=== PATIENT | male | born 1975 | race Caucasian/White ===

== ENCOUNTER 2016-03-28 05:22 | Day surgery (SDC) | payer OTHER ==
[~2016-03-28] VITALS: Ht 188 cm; Wt 122.5 kg
[~2016-03-28 05:22] MED LIST: ADVIL,NUPRIN,M200 MG PO; ELOCON 0.1% CRE15 GM TP; ERGOCALCIF50000 UNIT PO; MECLIZINE HCL12.5 M1 PO; ONE-A-DAY ESSE1 EAC1 PO; VENTOLIN HFA18 GM IH; ZYRTEC10 M3 PO
[2016-03-28] MEDS ORDERED: FISH OIL 1,001000 M2 PO (05:56)
[2016-03-28 06:02] VITALS: BP 140/77
[2016-03-28] MEDS ORDERED: COLACE100 MG PO (08:43)
[2016-03-28] MEDS ORDERED: PERCOCET 5/31 TABLET PO (08:43)
[2016-03-28 09:39] VITALS: BP 151/86
[2016-03-28 10:40] VITALS: BP 174/89; BP 179/89
== END 2016-03-28 10:52 | disposition home or self-care (01) ==
LOC: SDC 05:22
DX: K42.9 Umbilical hernia without obstruction or gangrene (principal); G47.33 Obstructive sleep apnea (adult) (pediatric); H81.09 Meniere's disease, unspecified ear
CPT/HCPCS: C1781; J1170; J2710; J3010

== ENCOUNTER 2016-04-03 12:24 | Inpatient (IN) | payer OTHER ==
[~2016-04-03] VITALS: Ht 188 cm; Wt 119.5 kg
[~2016-04-03 12:24] MED LIST changes: +COLACE100 MG PO; +FISH OIL 1,001000 M2 PO; +PERCOCET 5/31 TABLET PO
[2016-04-03 13:39] LABS: EOSINOPHIL (%) 1.8 % (0-5); EOSINOPHIL COUNT 0.2 K/uL (0-0.3); HEMATOCRIT 44.6 % (38.0-50.0); IMMATURE GRANULOCYTE (%) 0.7 % (0.0-0.7); IMMATURE GRANULOCYTE COUNT 0.7 K/uL; LYMPHOCYTE COUNT 1.5 K/uL (1.0-2.8); MCH 29.9 PG (29.0-34.0); MCHC 35.7 G/DL (30.0-36.0); MCV 83.8 FL (86-99); MEAN PLAT.VOLUME 8.3 uM^3 (9.0-12.4); MONOCYTE COUNT 0.9 K/uL (0-0.8); NEUTROPHIL (%) 74.1 % (45-76); NEUTROPHIL COUNT 7.6 K/uL (1.8-6.4); PLATELET COUNT 175 K/uL (156-360); RBC DIS.WIDTH-CV 12.3 % (11.8-14.6); RBC DIS.WIDTH-SD 37.2 % (39-53); RED BLOOD COUNT 5.32 M/uL (4.00-5.50)
[2016-04-03 13:45] LABS: WHITE BLOOD COUNT 10.2 K/uL (4.1-10.2)
[2016-04-03 13:49] LABS: CHLORIDE 104 mEq/L (99-109); POTASSIUM 4.8 mEq/L (3.7-5.4); SODIUM 138 mEq/L (136-147)
[2016-04-03 13:51] LABS: GLUCOSE 106 mg/dL (70-99); INTER. NORMALIZED RATIO 1.1; PROTHROMBIN TIME 10.7 (9.2-11.2); PTT 28.5 (25-32)
[2016-04-03 13:52] LABS: ANION GAP 9 MEQ/L (2-14)
[2016-04-03 13:54] LABS: GFR ESTIMATE (CALCULATED) > 59 mL/min/
[2016-04-03 13:55] LABS: UREA NITROGEN (BUN) 10 mg/dL (9-23)
[2016-04-03 13:59] LABS: D-DIMER ELISA > 4.00 mg/L FEU (< 0.57)
[2016-04-03 14:00] LABS: TROP-I INTERPRETATION NEGATIVE; TROPONIN-I 0.09 ng/mL (0.0-0.30)
[2016-04-03 17:00] VITALS: BP 138/91
[2016-04-03 17:25] VITALS: BP 138/91
[2016-04-03 20:00] VITALS: BP 136/96
[2016-04-03 20:26] LABS: TROP-I INTERPRETATION NEGATIVE; TROPONIN-I 0.29 ng/mL (0.0-0.30)
[2016-04-03 23:55] VITALS: BP 138/88
[2016-04-04 03:03] LABS: TROP-I INTERPRETATION NEGATIVE; TROPONIN-I 0.13 ng/mL (0.0-0.30)
[2016-04-04 04:00] VITALS: BP 125/80
[2016-04-04 04:25] LABS: HEMATOCRIT 44.3 % (38.0-50.0); MCH 29.6 PG (29.0-34.0); MCHC 35.2 G/DL (30.0-36.0); MCV 84.1 FL (86-99); MEAN PLAT.VOLUME 8.8 uM^3 (9.0-12.4); PLATELET COUNT 190 K/uL (156-360); RBC DIS.WIDTH-CV 12.5 % (11.8-14.6); RBC DIS.WIDTH-SD 37.9 % (39-53); RED BLOOD COUNT 5.27 M/uL (4.00-5.50); WHITE BLOOD COUNT 9.2 K/uL (4.1-10.2)
[2016-04-04 04:28] LABS: CHLORIDE 106 mEq/L (99-109); POTASSIUM 4.4 mEq/L (3.7-5.4); SODIUM 140 mEq/L (136-147)
[2016-04-04 04:30] LABS: GLUCOSE 105 mg/dL (70-99)
[2016-04-04 04:31] LABS: ANION GAP 8 MEQ/L (2-14)
[2016-04-04 04:32] LABS: TOTAL BILIRUBIN 0.8 mg/dL (0.0-1.0)
[2016-04-04 04:33] LABS: ALKALINE PHOSPHATASE 77 IU/L (3-129); GFR ESTIMATE (CALCULATED) > 59 mL/min/
[2016-04-04 04:35] LABS: UREA NITROGEN (BUN) 10 mg/dL (9-23)
[2016-04-04 07:30] VITALS: BP 169/95
[2016-04-04 12:07] VITALS: BP 156/90
[2016-04-04 16:15] VITALS: BP 139/94
[2016-04-04 20:00] VITALS: BP 135/91
[2016-04-04 23:55] VITALS: BP 133/80
[2016-04-05 04:00] VITALS: BP 136/94
[2016-04-05 08:00] VITALS: BP 140/85
[2016-04-05 11:15] VITALS: BP 154/89
[2016-04-05 14:21] LABS: INTER. NORMALIZED RATIO 1.1; PROTHROMBIN TIME 10.7 (9.2-11.2)
[2016-04-05 16:36] VITALS: BP 137/85
[2016-04-05 20:00] VITALS: BP 133/90
[2016-04-05 23:50] VITALS: BP 141/90
[2016-04-06 04:00] VITALS: BP 133/73
[2016-04-06 06:44] LABS: INTER. NORMALIZED RATIO 1.1; PTT 54.1 (25-32)
[2016-04-06 07:30] VITALS: BP 142/86
[2016-04-06 11:15] VITALS: BP 142/91
[2016-04-06 16:46] VITALS: BP 164/92
[2016-04-06 19:45] VITALS: BP 140/85
[2016-04-06 23:57] VITALS: BP 138/80
[2016-04-07 03:18] VITALS: BP 130/76
[2016-04-07 06:59] LABS: HEMATOCRIT 45.2 % (38.0-50.0); MCH 30.4 PG (29.0-34.0); MCHC 35.4 G/DL (30.0-36.0); MCV 85.8 FL (86-99); MEAN PLAT.VOLUME 9.6 uM^3 (9.0-12.4); PLATELET COUNT 203 K/uL (156-360); RBC DIS.WIDTH-CV 12.4 % (11.8-14.6); RBC DIS.WIDTH-SD 38.3 % (39-53); RED BLOOD COUNT 5.27 M/uL (4.00-5.50); WHITE BLOOD COUNT 8.9 K/uL (4.1-10.2)
[2016-04-07 07:20] LABS: INTER. NORMALIZED RATIO 1.2; PROTHROMBIN TIME 12.1 (9.2-11.2)
[2016-04-07 08:00] VITALS: BP 135/82
[2016-04-07 09:23] LABS: FACTOR Xa INHIBITION (LMWH) 0.8 IU/mL
[2016-04-07 11:15] VITALS: BP 138/91
[2016-04-07 16:15] VITALS: BP 129/82
[2016-04-07 19:36] VITALS: BP 162/88
[2016-04-07 23:45] VITALS: BP 127/81
[2016-04-08 02:56] VITALS: BP 145/81
[2016-04-08 06:30] LABS: EOSINOPHIL (%) 4.4 % (0-5); EOSINOPHIL COUNT 0.4 K/uL (0-0.3); HEMATOCRIT 44.9 % (38.0-50.0); IMMATURE GRANULOCYTE (%) 1.1 % (0.0-0.7); IMMATURE GRANULOCYTE COUNT 0.1 K/uL; LYMPHOCYTE COUNT 2.1 K/uL (1.0-2.8); MCH 30.8 PG (29.0-34.0); MCHC 35.9 G/DL (30.0-36.0); MCV 85.9 FL (86-99); MEAN PLAT.VOLUME 9.4 uM^3 (9.0-12.4); MONOCYTE (%) 10.2 % (3-12); NEUTROPHIL (%) 62.1 % (45-76); NEUTROPHIL COUNT 5.9 K/uL (1.8-6.4); PLATELET COUNT 210 K/uL (156-360); RBC DIS.WIDTH-CV 12.3 % (11.8-14.6); RBC DIS.WIDTH-SD 38.5 % (39-53); RED BLOOD COUNT 5.23 M/uL (4.00-5.50); WHITE BLOOD COUNT 9.5 K/uL (4.1-10.2)
[2016-04-08 07:15] LABS: INTER. NORMALIZED RATIO 1.5; PROTHROMBIN TIME 15.2 (9.2-11.2)
[2016-04-08 07:17] LABS: ANION GAP 8 MEQ/L (2-14); CHLORIDE 102 MEQ/L (99-109); GFR ESTIMATE (CALCULATED) > 59 mL/min/; GLUCOSE 87 mg/dL (70-99); POTASSIUM 4.2 MEQ/L (3.7-5.4); SAMPLE HEMOLYSIS CHECK 0; SAMPLE ICTERIC CHECK 0; SAMPLE LIPEMIA CHECK 0; SODIUM 139 MEQ/L (136-147); UREA NITROGEN (BUN) 13 mg/dL (9-23)
[2016-04-08 07:52] VITALS: BP 113/62
[2016-04-08 10:08] LABS: FACTOR Xa INHIBITION (LMWH) 1.2 IU/mL
[2016-04-08] MEDS ORDERED: LOVENOX120 MG/0.8 SC (10:58)
[2016-04-08 11:34] VITALS: BP 119/63
[2016-04-08] MEDS ORDERED: WARFARIN SODIUM5 MG PO (13:38)
[2016-04-08 15:33] LABS: APCR to FVL REFLEX Has been added (()); DRVVT Mixing Study Interp Not Indicated (()); PROTEIN C FUNCTIONAL ACTIVITY+ 175 % (70-180); PTT-LA 37 sec (<=40); Protein S, Free 124 % normal (57-171); Thrombosis Consult Level Limited (()); dRVVT Screen 37 sec (<=45)
[2016-04-09 07:28] LABS: ANTITHROMBIN III ACTIVITY+ 103 % activi (80-120)
== END 2016-04-08 15:00 | disposition home or self-care (01) | DRG 176 ==
LOC: EME 12:24 → 4EAST 15:12 → EDOF 15:12 → 4EAST 16:50
PROVIDERS: Emergency Medicine; Hospitalist; Internal Medicine; Internal Medicine Hematology & Oncology; Internal Medicine Pulmonary Disease
PROC: 5A09357 Assistance with Respiratory Ventilation, Less than 24 Consecutive Hours, Continuous Positive Airway Pressure (ICD-10-PCS; principal; 2016-04-03)
DX: I26.92 Saddle embolus of pulmonary artery without acute cor pulmonale (principal); I82.441 Acute embolism and thrombosis of right tibial vein; J98.2 Interstitial emphysema; I27.2 Other secondary pulmonary hypertension; G47.33 Obstructive sleep apnea (adult) (pediatric); E66.9 Obesity, unspecified; Z68.34 Body mass index [BMI] 34.0-34.9, adult; Z87.891 Personal history of nicotine dependence
CPT/HCPCS: 71010; 71275; 80048; 80053; 81240 90; 83090 90; 83880; 84484; 85025; 85027; 85240 90; 85300 90; 85303 90; 85305 90; 85306 90; 85307 90; 85379; 85520; 85610; 85613 90; 85730; 85730 90; 86146 90; 86147 90; 93306; 93971; 94640; 94660; 94799; 99202; 99281; 99285; J1650; J7030; S0028

== ENCOUNTER 2016-04-15 06:41 | Emergency (ER) | payer OTHER ==
[~2016-04-15] VITALS: Ht 188 cm; Wt 119.5 kg
[~2016-04-15 06:41] MED LIST changes: +LOVENOX120 MG/0.8 SC; +WARFARIN SODIUM5 MG PO
[2016-04-15 07:36] LABS: HEMATOCRIT 46.6 % (38.0-50.0); MCH 29.1 PG (29.0-34.0); MCHC 35.2 G/DL (30.0-36.0); MCV 82.8 FL (86-99); RBC DIS.WIDTH-CV 12.5 % (11.8-14.6); RBC DIS.WIDTH-SD 37.4 % (39-53); RED BLOOD COUNT 5.63 M/uL (4.00-5.50); WHITE BLOOD COUNT 6.8 K/uL (4.1-10.2)
[2016-04-15 07:43] LABS: MEAN PLAT.VOLUME 8.6 uM^3 (9.0-12.4); PLATELET COUNT 293 K/uL (156-360)
[2016-04-15 07:53] LABS: INTER. NORMALIZED RATIO 6.2; PROTHROMBIN TIME 66.3 (9.2-11.2)
[2016-04-15 07:59] LABS: ANION GAP 10 MEQ/L (2-14); CHLORIDE 102 MEQ/L (99-109); POTASSIUM 4.3 MEQ/L (3.7-5.4); SAMPLE HEMOLYSIS CHECK 0; SAMPLE ICTERIC CHECK 0; SAMPLE LIPEMIA CHECK 0; SODIUM 139 MEQ/L (136-147); TOTAL BILIRUBIN 0.4 MG/DL (0.0-1.0)
[2016-04-15 08:05] LABS: ALKALINE PHOSPHATASE 73 IU/L (3-129); GFR ESTIMATE (CALCULATED) > 59 mL/min/; GLUCOSE 108 mg/dL (70-99); UREA NITROGEN (BUN) 12 mg/dL (9-23)
[2016-04-15 08:53] VITALS: BP 128/91
== END 2016-04-15 08:53 | disposition home or self-care (01) ==
LOC: EME 06:41
PROVIDERS: Emergency Medicine
DX: T45.511A Poisoning by anticoagulants, accidental (unintentional), initial encounter (principal); Z86.711 Personal history of pulmonary embolism; Z86.718 Personal history of other venous thrombosis and embolism; Z87.01 Personal history of pneumonia (recurrent); Z87.891 Personal history of nicotine dependence
CPT/HCPCS: 80053; 85027; 85610; 85730; 93005; 99281; 99284

== ENCOUNTER 2017-05-03 14:35 | Observation (INO) | payer OTHER ==
[~2017-05-03] VITALS: Ht 188 cm; Wt 117.0 kg
[2017-05-03 15:21] LABS: HEMATOCRIT 47.5 % (38.0-50.0); HEMOGLOBIN 16.6 G/DL (12.5-16.6); MCH 30.3 PG (29.0-34.0); MCHC 34.9 G/DL (30.0-36.0); MCV 86.8 FL (86-99); PLATELET COUNT 222 K/uL (156-360); RBC DIS.WIDTH-CV 11.9 % (11.8-14.6); RBC DIS.WIDTH-SD 38.1 % (39-53); RED BLOOD COUNT 5.47 M/uL (4.00-5.50); WHITE BLOOD COUNT 8.4 K/uL (4.1-10.2)
[2017-05-03 15:32] LABS: CHLORIDE 103 mEq/L (99-109); POTASSIUM 4.1 mEq/L (3.7-5.4); SODIUM 139 mEq/L (136-147)
[2017-05-03 15:34] LABS: GLUCOSE 91 mg/dL (70-99)
[2017-05-03 15:38] LABS: CREATININE 1.1 mg/dL (0.6-1.3); GFR ESTIMATE (CALCULATED) > 59 mL/min/ (58.99-99999); UREA NITROGEN (BUN) 11 mg/dL (9-23)
[2017-05-03 15:44] LABS: TROP-I INTERPRETATION NEGATIVE; TROPONIN-I < 0.01 ng/mL (0.0-0.30)
[2017-05-03] MEDS ORDERED: XARELTO20 MG PO (18:37)
[2017-05-03 20:52] VITALS: BP 147/95
[2017-05-03 22:25] LABS: HDL CHOLESTEROL 31 MG/DL (Desirable>=40); LDL CHOLESTEROL 99 mg/dL (Desirable<100); NON-HDL CHOLESTEROL 145 mg/dL (Desirable<160); TOTAL CHOLESTEROL 176 mg/dL (Desirable<200); TRIGLYCERIDES 229 MG/DL (Normal: <150)
[2017-05-03 23:01] VITALS: BP 110/59
[2017-05-04 01:10] LABS: TROP-I INTERPRETATION NEGATIVE; TROPONIN-I < 0.01 ng/mL (0.0-0.30)
[2017-05-04 03:48] VITALS: BP 116/60
[2017-05-04 07:04] LABS: TROP-I INTERPRETATION NEGATIVE; TROPONIN-I < 0.01 ng/mL (0.0-0.30)
[2017-05-04 07:48] VITALS: BP 133/80
[2017-05-04] MEDS ORDERED: LOPRESSOR25 MG PO (10:59)
[2017-05-04 11:21] VITALS: BP 145/92
== END 2017-05-04 12:00 | disposition home or self-care (01) ==
LOC: EME 14:35 → EDOF 18:39 → 5WEST 18:39 → EDOF 18:39 → ENRESERV 18:56 → 5WEST 20:26
PROVIDERS: Hospitalist
DX: R07.9 Chest pain, unspecified (principal); Z86.711 Personal history of pulmonary embolism; Z82.49 Family history of ischemic heart disease and other diseases of the circulatory system; I10 Essential (primary) hypertension; R20.2 Paresthesia of skin; I27.20 Pulmonary hypertension, unspecified; I07.1 Rheumatic tricuspid insufficiency; Z79.01 Long term (current) use of anticoagulants; Z87.891 Personal history of nicotine dependence; Z88.0 Allergy status to penicillin; Z88.6 Allergy status to analgesic agent
CPT/HCPCS: 71046; 71275; 73564; 80048; 80061; 84484; 85027; 93005; 99202; 99281; 99285; G0378